=== PATIENT | male | born 1995 | race Caucasian/White ===

== ENCOUNTER 2021-11-18 17:31 | Emergency (ER) | payer SELFPAY ==
[2021-11-18 17:33] VITALS: BP 122/80; PULSE 92; RESP 16; TEMP 36.8; O2SAT 99; BMI 39.5
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
[2021-11-18 18:28] LABS: Absolute Neutrophil Count 4.1 X10^3/uL (2.0-7.7); Basophil# 0.02 X10^3/uL; Basophil% 0.3 % (0-1); Eosinophil# 0.06 X10^3/uL; Eosinophils% 0.9 % (0-5); Hematocrit 43.8 % (40-54); Hemoglobin 15.7 g/dL (13.0-16.5); Lymphocyte % 32.7 % (19-41); Mean Corp Hgb Conc 35.8 g/dL (32-36); Mean Corpuscular Hgb 29.3 pg (27.0-32.0); Mean Corpuscular Volume 81.9 fL (80-94); Mean Platelet Vol. 9.1 fl (6.2-12.0); Monocyte# 0.54 X10^3/uL; Monocyte% 7.7 % (0-10); NRBC Flagged by Analyzer 0 % (0-5); Neutrophil # 4.11 X10^3/uL (2.7-7.7); Neutrophil % 58.3 % (47-70); Platelet Count 297 K/mm3 (150-450); RBC Distribution Width SD 35.9 fl (35.1-43.9); Red Blood Count 5.35 M/mm3 (4.6-6.2)
[2021-11-18 18:40] LABS: Anion Gap 6 (5-15); BUN 19 mg/dL (7-18); BUN/Creat Ratio 23.5 RATIO (10-20); Calcium,Total 9.3 mg/dL (8.5-10.1); Chloride 105 mmol/L (98-107); Creatinine, Serum 0.81 mg/dL (0.70-1.30); EST Glomerular Filtration Rate 121 mL/min (>60); Est Glom Filt Rate - Afr Amer 147 mL/min (>60); Estimated Creatinine Clearance 132.53 ml/min; Glucose 128 mg/dL (74-106); Potassium 3.6 mmol/L (3.5-5.1); Sodium Level 139 mmol/L (136-145)
[2021-11-18 19:01] VITALS: RESP 16
[2021-11-18 19:17] LABS: Alcohol, Blood (Medical)-Serum < 3.0 mg/dL
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
--- NOTE | 2021-11-18 19:45 | ED.RN ---
Patient called Nurse into room and asked I was wondering if I can have sex with you. RN replied with No. That is very inappropriate to ask and patient replied okay.
--- NOTE | 2021-11-18 19:57 | CM.ED ---
Social Work Telephone call to [facility], Lizette. This social media sr strategy manager updated [facility] on referral as patient is self-pay. [facility] plans to come and assess patient. This social media sr strategy manager updated medical team on above. Agus SKELTON, DINAH
[2021-11-18 20:16] LABS: Amphetamine Urine VISTA NEGATIVE (<1000 ng/mL); Barbiturate Urine VISTA NEGATIVE (< 200 ng/mL); Benzodiazepine Urine VISTA NEGATIVE (< 200 ng/mL); Cocaine Urine VISTA NEGATIVE (< 300 ng/mL); Ecstacy Urine VISTA NEGATIVE (< 500 ng/mL); Methadone Urine VISTA NEGATIVE (< 300 ng/mL); PCP Urine VISTA NEGATIVE (< 25 ng/mL); THC Urine VISTA NEGATIVE (< 50 ng/mL); Vista UDS pH Range 4
--- NOTE | 2021-11-18 20:27 | ED.RN ---
crisis here to eval patient at this time
--- NOTE | 2021-11-18 21:13 | ED.RN ---
PER CRISIS COUNSELOR, PT. REPORTS HAVING HALLUCINATIONS THAT ARE TELLING HIM TO DO/SAY THINGS.
--- NOTE | 2021-11-18 21:54 | ED.RN ---
REPORT GIVEN TO JOSY MENDOZA, WHO WILL ASSUME CARE AT THIS TIME.
[2021-11-18 22:00] VITALS: PULSE 71; RESP 15; O2SAT 99
[2021-11-18 23:00] VITALS: RESP 16
[2021-11-19] VITALS: RESP 14
[2021-11-19 01:00] VITALS: BP 125/70; PULSE 79; RESP 14; O2SAT 99
[2021-11-19 02:00] VITALS: RESP 14
--- NOTE | 2021-11-19 02:03 | ED.RN ---
ATTEMPTED TO CALL REPORT X2 NO ANSWER
--- NOTE | 2021-11-19 02:49 | ED.RN ---
report called to [facility] at [facility]
[2021-11-19 03:00] VITALS: RESP 15
[2021-11-19 04:00] VITALS: RESP 15
[2021-11-19 06:00] VITALS: BP 121/74; PULSE 73; RESP 15; TEMP 36.4; O2SAT 99
== END 2021-11-19 06:50 ==
PROVIDERS: Emergency Provider Emergency Medicine; PCP Family Medicine; Visit Provider Emergency Medicine
DX: R45.851 Suicidal ideations (principal); F17.210 Nicotine dependence, cigarettes, uncomplicated; F32.A Depression, unspecified; Z79.899 Other long term (current) drug therapy
CPT/HCPCS: 80048; 80307; 82077; 85025; 87811; 99285

== ENCOUNTER 2022-01-21 10:08 | Emergency (ER) | payer OTHER, SELFPAY ==
[2022-01-21 10:09] VITALS: BP 150/95; PULSE 107; RESP 18; TEMP 36.6; O2SAT 99; BMI 41.5
--- NOTE | 2022-01-21 10:14 | ED.RN ---
upon talking to patient, pt does have a very specific plan to kill himself by hanging
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
[2022-01-21 11:03] LABS: Absolute Lymphocyte Count 1.58 X10^3/uL (0.83-4.51); Absolute Neutrophil Count 4.3 X10^3/uL (2.0-7.7); Basophil# 0.02 X10^3/uL; Basophil% 0.3 % (0-1); Eosinophil# 0.08 X10^3/uL; Eosinophils% 1.2 % (0-5); Hematocrit 43.3 % (40-54); Hemoglobin 14.7 g/dL (13.0-16.5); Lymphocyte # 1.58 X10^3/ul (0.83-4.51); Lymphocyte % 24.2 % (19-41); Mean Corp Hgb Conc 33.9 g/dL (32-36); Mean Corpuscular Hgb 28.8 pg (27.0-32.0); Mean Corpuscular Volume 84.9 fL (80-94); Mean Platelet Vol. 8.8 fl (6.2-12.0); Monocyte# 0.53 X10^3/uL; Monocyte% 8.1 % (0-10); NRBC Flagged by Analyzer 0 % (0-5); Neutrophil # 4.28 X10^3/uL (2.7-7.7); Neutrophil % 65.7 % (47-70); Platelet Count 268 K/mm3 (150-450); RBC Distribution Width CV 12.3 % (11.6-14.6); RBC Distribution Width SD 37.7 fl (35.1-43.9); White Blood Count 6.5 K/mm3 (4.4-11.0)
[2022-01-21 11:14] LABS: Amphetamine Urine VISTA NEGATIVE (<1000 ng/mL); Barbiturate Urine VISTA NEGATIVE (< 200 ng/mL); Benzodiazepine Urine VISTA NEGATIVE (< 200 ng/mL); Cocaine Urine VISTA NEGATIVE (< 300 ng/mL); Ecstacy Urine VISTA NEGATIVE (< 500 ng/mL); Methadone Urine VISTA NEGATIVE (< 300 ng/mL); PCP Urine VISTA NEGATIVE (< 25 ng/mL); THC Urine VISTA NEGATIVE (< 50 ng/mL); Vista UDS pH Range 5
[2022-01-21 11:19] LABS: AST(SGOT) 16 U/L (15-37); Alanine Aminotransfer ALT/SGPT 28 U/L (16-61); Albumin, Serum 3.9 g/dL (3.2-5.0); Alkaline Phosphatase 57 U/L (45-117); Anion Gap 7 (5-15); BUN 18 mg/dL (7-18); BUN/Creat Ratio 19.7 RATIO (10-20); Calcium,Total 9.4 mg/dL (8.5-10.1); Chloride 108 mmol/L (98-107); Creatinine, Serum 0.92 mg/dL (0.70-1.30); EST Glomerular Filtration Rate 105 mL/min (>60); Est Glom Filt Rate - Afr Amer 127 mL/min (>60); Estimated Creatinine Clearance 124.53 ml/min; Globulin 3.8 g/dL (2.2-4.2); Glucose 98 mg/dL (74-106); Potassium 4.2 mmol/L (3.5-5.1); Protein, Total 7.7 g/dL (6.4-8.2); Sodium Level 140 mmol/L (136-145)
[2022-01-21 12:00] VITALS: RESP 18
--- NOTE | 2022-01-21 12:40 | NURSING ---
SPOKE WITH KESHIA FROM CRISIS TO INFORM HER ABOUT PT. CHART AND LABS FAXED TO CRISIS AT THIS TIME.
[2022-01-21 13:00] VITALS: RESP 18
--- NOTE | 2022-01-21 13:21 | NURSING ---
KESHIA, COUNSELING CENTER, CALLED
[2022-01-21 14:00] VITALS: BP 145/76; PULSE 92; RESP 22; O2SAT 99
--- NOTE | 2022-01-21 14:43 | ED.RN ---
Patients given an update. Patient has been evaluated for bloodwork, covid swab and urine. has been updated. asking questions about placement. RN states she is unsure of placement at this time. We are waiting to hear back from crisis for treatment plan. Patients had questions about where he would be placed. RN stated it depends on crisis' evaluation, and bed availabilty if he does need placement. Patients has no further questions at this time. Patient on portable phone with father in law.
--- NOTE | 2022-01-21 14:55 | ED.RN ---
Rn has gone over patients safety plan. Plan has been signed by patient. patient has been given discharge paperwork. patient on the phone calling for ride.
[2022-01-21 15:00] VITALS: RESP 18
[2022-01-25 17:19] LABS: Lamotrigine (Lamictal) Level 2.4 ug/mL (2.0-20.0)
== END 2022-01-21 15:01 | disposition home or self-care (01) ==
PROVIDERS: Emergency Provider Student in an Organized Health Care Education/Training Program; PCP Family Medicine; Visit Provider Student in an Organized Health Care Education/Training Program
DX: R45.851 Suicidal ideations (principal); F31.9 Bipolar disorder, unspecified; F17.290 Nicotine dependence, other tobacco product, uncomplicated; I10 Essential (primary) hypertension; Z79.899 Other long term (current) drug therapy
CPT/HCPCS: 80053; 80307; 82077; 82542; 85025; 87811; 99283